=== PATIENT | male | born 1985 | race Caucasian/White ===

== ENCOUNTER 2021-02-20 16:16 | Emergency (ER) | payer MEDICAID ==
[~2021-02-20] VITALS: Ht 175.3 cm; Wt 100.0 kg
[2021-02-20 16:19] VITALS: BP 146/85
== END 2021-02-20 17:24 | disposition home or self-care (01) ==
LOC: EMS 16:19
DX: L03.115 Cellulitis of right lower limb (principal); F17.210 Nicotine dependence, cigarettes, uncomplicated
CPT/HCPCS: 99283